=== PATIENT | female | born 2000 | race Caucasian/White ===

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

== ENCOUNTER 2022-07-05 17:24 | Emergency (ER) | payer BC ==
[~2022-07-05] VITALS: Ht 165.1 cm; Wt 68.0 kg
[~2022-07-05 17:24] MED LIST changes: +CRYSELLE-28 TA1 EACH PO
[2022-07-05 17:34] VITALS: BP 125/63
== END 2022-07-05 18:06 | disposition home or self-care (01) ==
LOC: ED 17:24
DX: Z20.2 Contact with and (suspected) exposure to infections with a predominantly sexual mode of transmission (principal)

== ENCOUNTER 2025-02-09 02:30 | Emergency (ER) | payer OTHER ==
[2025-02-09 02:39] VITALS: BP 104/60
[2025-02-09] MEDS ORDERED: Ondansetron Hydrochloride 4 MG/2 ML VIAL IV ONE (03:05)
[2025-02-09] MEDS ORDERED: SODIUM CHLORIDE 0.9% 1,000 ML IV ONE (03:05)
== END 2025-02-09 05:45 | disposition home or self-care (01) ==
LOC: ED 02:30
DX: R11.2 Nausea with vomiting, unspecified (principal); F10.129 Alcohol abuse with intoxication, unspecified; Z79.899 Other long term (current) drug therapy; Z98.890 Other specified postprocedural states